=== PATIENT | male | born 1955 | race African-American/Black ===

== ENCOUNTER 2021-02-23 18:02 | Emergency (ER) | payer BC, OTHER ==
--- OUTSIDE RECORDS SUMMARY | 2021-02-23 18:05 | XMS REPORT | Continuity of Care Document ---
:1955 Author Organization [facility] t Address [address] [place] [address] Care Team Providers Name Role Phone Pcp, Patient Does Not Have A Primary Care Physician +[id number] Ramirez LOUIS Attending Clinician Unavailable Liyah PRESSLEY Attending Clinician Lisa BROWN Attending Clinician Unavailable Savi BROWN, T Attending Clinician Unavailable Only, Db Test Attending Clinician Unavailable Padmini SILVA Attending Clinician PADMINI Attending Clinician Unavailable ABDIRIZAK Attending Clinician Unavailable DANYEL Attending Clinician Unavailable Payers Payer Name Policy Type Policy Number Effective Date Expiration Date S ource Problems Condition Condition Condition Status Onset Resolution Last Treating Co mments Source Name Details Category Date Date Treatment Clinician Date Vitamin D Vitamin D Disease Active 2020-04 [facility] deficiency deficiency 0-22 [facility] alth 00:00: 00 Tobacco Tobacco Disease Active 2020-04 [facility] dependency dependency 0-05 [facility] 00:00: 00 Chronic Chronic Disease Active 2020-04 [facility] obstructiv obstructiv 0-05 He alth e e 00:00: pulmonary pulmonary 00 disease disease Type 2 Type 2 Disease Active 2020-04 [facility] diabetes diabetes 0-05 Health mellitus mellitus 00:00: without without 00 complicati complicati on, on, without without long-term long-term current current use of use of insulin insulin Hyperlipid Hyperlipid Disease Active 2020-04 U T emia emia 0-05 Health 00:00: 00 Allergies, Adverse Reactions, Alerts Allergy Allergy Status Severity Reaction(s) Onset Inactive Treating Comm ents Source Name Type Date Date Clinician NO KNOWN Drug Active [facility] ALLERGIE Class ity [facility] Social History Social Habit Start Date Stop Date Quantity Comments Source Exposure to Not sure [facility] SARS-CoV-2 (event) Tobacco use and 2021-01-11 2021-01-11 Smokeless tobacco [facility] exposure 00:00:00 00:00:00 non-user Sex Ass[birth year] At [birth year] [facility] 00:00:00 00:00:00 Smoking Status Start Date Stop Date Source Unknown if ever smoked [facility] Smokes tobacco daily 2021-01-11 00:00:00 [facility] Medications Ordered Filled Start Stop Current Ordering Indication Dosage Frequency Signature Comments Components Source Medication Medication Date Date Medication? Clinician (SIG) Name Name glucose 2020-04- Yes [id number] Check [facility] blood test 04-19- glucose 3 Hea lth strip 00:00: 05:59 times 00 :00 daily Blood 2020-04- Yes [id number] Check [facility] Glucose 04-19- glucose Health Monitoring 00:00: 05:59 three Suppl 00 :00 times (Blood daily. Glucose Monitor System) w/Device kit glucose 2020-04- Yes [id number] Check [facility] blood test 04-19- glucose 3 Hea lth strip 00:00: 05:59 times 00 :00 daily Blood 2020-04- Yes [id number] Check [facility] Glucose 04-19- glucose Health Monitoring 00:00: 05:59 three Suppl 00 :00 times (Blood daily. Glucose Monitor System) w/Device kit glucose 2020-04- Yes [id number] Check [facility] blood test 04-19- glucose 3 Hea lth strip 00:00: 05:59 times 00 :00 daily Blood 2020-04- Yes [id number] Check [facility] Glucose 04-19- glucose Health Monitoring 00:00: 05:59 three Suppl 00 :00 times (Blood daily. Glucose Monitor System) w/Device kit Lancets 2020-04- Yes [id number] Box 3 [facility] Super Thin 04-19 [id number] (three) Health 28G misc 00:00: 05:59 3D times a 00 :00 day. Lancets 2020-04- Yes [id number] 1 Box 3 [facility] Super Thin -03-20 [id number] (three) Health 28G misc 00:00: 05:59 3D times a 00 :00 day. Alcohol 2020-04- Yes [id number] Q.[id number] 1 Box 3 [facility] Swabs 04-19 [id number] (three) Heal th (Alcohol 00:00: 05:59 3D times a Pads) 70 % 00 :00 day. PT pads checks blood glucose three times daily. Lancets 2020-04- Yes [id number] 1 Box 3 [facility] Super Thin -03-20 [id number] (three) Health 28G misc 00:00: 05:59 3D times a 00 :00 day. Alcohol 2020-04- Yes [id number] Q.[id number] 1 Box 3 [facility] Swabs 04-19 [id number] (three) Heal th (Alcohol 00:00: 05:59 3D times a Pads) 70 % 00 :00 day. PT pads checks blood glucose three times daily. empaglifloz 2020-04- Yes [id number] 25mg QD Take 1 [facility] in 0-22 10-23 tablet (25 Health (Jardiance) 00:00: 04:59 mg total) 25 MG 00 :00 by mouth 1 (one) time each day. linaGLIPtin 2020-04- Yes [id number] 5mg QD Take 1 [facility] (Tradjenta) 0-22 10-23 tablet (5 He alth 5 MG tablet 00:00: 04:59 mg total) 00 :00 by mouth 1 (one) time each day. empaglifloz 2020-04- Yes [id number] 25mg QD Take 1 [facility] in 0-22 10-23 tablet (25 Health (Jardiance) 00:00: 04:59 mg total) 25 MG 00 :00 by mouth 1 (one) time each day. linaGLIPtin 2020-04- Yes [id number] 5mg QD Take 1 UT (Tradjenta) 0-22 10-23 tablet (5 He alth 5 MG tablet 00:00: 04:59 mg total) 00 :00 by mouth 1 (one) time each day. empaglifloz 2020-04- Yes [id number] 25mg QD Take 1 UT in - tablet (25 Health (Jardiance) 00:00: 04:59 mg total) 25 MG 00 :00 by mouth 1 (one) time each day. linaGLIPtin 2020-04- Yes [id number] 5mg QD Take 1 UT (Tradjenta) 01-29 tablet (5 He alth 5 MG tablet 00:00: 04:59 mg total) 00 :00 by mouth 1 (one) time each day. empaglifloz 2020-04- Yes [id number] 25mg QD Take 1 UT in 01-29 tablet (25 Health (Jardiance) 00:00: 04:59 mg total) 25 MG 00 :00 by mouth 1 (one) time each day. linaGLIPtin 2020-04- Yes [id number] 5mg QD Take 1 UT (Tradjenta) 01-29 tablet (5 He alth 5 MG tablet 00:00: 04:59 mg total) 00 :00 by mouth 1 (one) time each day. atorvastati 2020-04- Yes [id number] 40mg QD Take 1 UT n (Lipitor) 07-28 tablet (40 H ealth 40 MG 00:00: 04:59 mg total) tablet 00 :00 by mouth 1 (one) time each day. metFORMIN 2020-04- Yes [id number] 1000mg QD Take 2 UT XR - tablets Health (Glucophage 00:00: 04:59 (1,000 mg -XR) 500 MG 00 :00 total) by 24 hr mouth 1 tablet (one) time each day with breakfast. Do not crush, chew, or split. atorvastati 2020-04- Yes [id number] 40mg QD Take 1 UT n (Lipitor) -21 tablet (40 H ealth 40 MG 00:00: 04:59 mg total) tablet 00 :00 by mouth 1 (one) time each day. metFORMIN 2020-04- Yes [id number] 1000mg QD Take 2 UT XR 0-22 04-21 tablets Health (Glucophage 00:00: 04:59 (1,000 mg -XR) 500 MG 00 :00 total) by 24 hr mouth 1 tablet (one) time each day with breakfast. Do not crush, chew, or split. atorvastati 2020-04- Yes [id number] 40mg QD Take 1 UT n (Lipitor) 0-22 04-21 tablet (40 H ealth 40 MG 00:00: 04:59 mg total) tablet 00 :00 by mouth 1 (one) time each day. metFORMIN 2020-04- Yes [id number] 1000mg QD Take 2 UT XR 0-22 04-21 tablets Health (Glucophage 00:00: 04:59 (1,000 mg -XR) 500 MG 00 :00 total) by 24 hr mouth 1 tablet (one) time each day with breakfast. Do not crush, chew, or split. atorvastati 2020-04- Yes [id number] 40mg QD Take 1 UT n (Lipitor) 0-29 07-21 tablet (40 H ealth 40 MG 00:00: 04:59 mg total) tablet 00 :00 by mouth 1 (one) time each day. metFORMIN 2020-04- Yes [id number] 1000mg QD Take 2 UT XR 0-22 -21 tablets Health (Glucophage 00:00: 04:59 (1,000 mg -XR) 500 MG 00 :00 total) by 24 hr mouth 1 tablet (one) time each day with breakfast. Do not crush, chew, or split. ergocalcife 2020-04- Yes [id number] Take 1 UT rol 04-23 capsule Health (Vitamin 00:00: 05:59 (50,000 D-2) 1.25 00 :00 Units MG (16517 total) by UT) capsule mouth 1 (one) time per week. ergocalcife 2020-04- Yes [id number] Take 1 UT rol -04-23 capsule Health (Vitamin 00:00: 05:59 (50,000 D-2) 1.25 00 :00 Units MG (29390 total) by UT) capsule mouth 1 (one) time per week. ergocalcife 2020-04- Yes [id number] Take 1 UT rol 0-22 15 capsule Health (Vitamin 00:00: 05:59 (50,000 D-2) 1.25 00 :00 Units MG (93090 total) by UT) capsule mouth 1 (one) time per week. ergocalcife 2020-04- Yes [id number] Take 1 UT rol 0-22 15 capsule Health (Vitamin 00:00: 05:59 (50,000 D-2) 1.25 00 :00 Units MG (92594 total) by UT) capsule mouth 1 (one) time per week. buPROPion 2020-04- Yes [id number] 150mg Take 1 UT XL 0-05 12-05 tablet Health (Wellbutrin 00:00: 05:59 (150 mg XL) 150 MG 00 :00 total) by 24 hr mouth 1 tablet (one) time each day in the morning. Do not crush, chew, or split. buPROPion 2020-04- Yes [id number] 150mg Take 1 UT XL 0-05 12-05 tablet Health (Wellbutrin 00:00: 05:59 (150 mg XL) 150 MG 00 :00 total) by 24 hr mouth 1 tablet (one) time each day in the morning. Do not crush, chew, or split. buPROPion 2020-04- Yes [id number] 150mg Take 1 UT XL 0-05 12-05 tablet Health (Wellbutrin 00:00: 05:59 (150 mg XL) 150 MG 00 :00 total) by 24 hr mouth 1 tablet (one) time each day in the morning. Do not crush, chew, or split. buPROPion 2020-04- Yes [id number] 150mg Take 1 UT XL 0-05 12-05 tablet Health (Wellbutrin 00:00: 05:59 (150 mg XL) 150 MG 00 :00 total) by 24 hr mouth 1 tablet (one) time each day in the morning. Do not crush, chew, or split. Immunizations Ordered Immunization Filled Immunization Date Status Commen ts Source Name Name Pneumococcal Conjugate 2021-01-11 Completed [facility] PCV 13 00:00:00 Influenza, High Dose 2021-01-11 Completed [facility] Seasonal 00:00:00 Pneumococcal Conjugate 2021-01-11 Completed [facility] PCV 13 00:00:00 Influenza, High Dose 2021-01-11 Completed [facility]al 00:00:00 Pneumococcal Conjugate 2021-01-11 Completed [facility] PCV 13 00:00:00 Influenza, High Dose 2021-01-11 [facility]pleted [facility] 00:00:00 Pneumococcal Conjugate 2021-01-11 Completed [facility] PCV 13 00:00:00 Influenza, High Dose 2021-01-11 [facility]pleted [facility] 00:00:00 Procedures This patient has no known procedures. Encounters Start End Encounter Admission Attending Care Care Encounter Source Date/Time Date/Time Type Type Clinicians Facility Department ID 2021-02-17 2021-02-17 Orders Roberth Guzmán MARCE [id number] [facility] 00:00:00 00:00:00 Only GuzmánDarwinel BEBETO [id number] [facility] [id number] MULTI [id number] SPECIALTY 3 2021-02-17 2021-02-17 Orders Darwin Guzmánel UTP [id number] [facility] 00:00:00 00:00:00 Only Roberth GuzmánNNA [id number] [facility] [id number] MULTI [id number] SPECIALTY 3 2021-02-17 2021-02-17 Telephone Iron Pelletier [id number] [facility] 00:00:00 00:00:00 BEBETO [id number] [facility] [id number] MULTI [id number] SPECIALTY 3 2021-02-16 2021-02-16 Telephone Yumiko Gonzalez [facility] [id number] [id number] [facility] 00:00:00 00:00:00 Yumiko Gonzalez [id number] [facility] [id number] [place] [id number] 2020-12-10 2020-12-10 Letter ROULA Hou [id number] Univers 00:00:00 00:00:00 (Out) Yesenia SHANNON [id number] it y of [facility] [id number] [place] [id number] [address] 2020-12-08 2020-12-08 Laboratory Only, Ang Db Test [facility] 1.2.8 [id number] [id number] Univers 14:17:03 14:27:03 [facility] [id number] it[facility] [id number] [place]?Blea [id number] Ga rae [address] [facility] 2020-12-08 2020-12-08 Outpatient R PADMINI [facility] [id number] Univers 14:15:00 14:15:00 JANICE trotter o f [facility] 2020-12-07 2020-12-07 Outpatient Scott REVELES [facility] [id number] [facility] 15:50:00 15:50:00 SIXTO trotter [facility] 2020-07-19 2020-07-19 Outpatient DANYEL [facility] [id number] [place] 00:00:00 00:00:00 CECELIA [address] 2020-06-28 2020-06-28 [facility] [id number] [place] 00:00:00 00:00:[address] Results This patient has no known results.
--- NOTE | 2021-02-23 19:56 | RAD REPORT ---
EXAM DESCRIPTION: Shoulder Right 2 View - 02/23/2021 7:47 pm CLINICAL HISTORY: shoulder pain COMPARISON: No comparisonsNo comparisons TECHNIQUE: Internal and external rotation views of the right shoulder were obtained. FINDINGS: There is no fracture or dislocation. Small inferiorly directed spurs are present at the A C joint. Acromial humeral joint space within normal range. No abnormal soft tissue calcifications. No acute or suspicious findings. IMPRESSION: Degenerative spurring at the AC joint. No acute findings seen.
--- NOTE | 2021-02-23 20:02 | RAD REPORT ---
EXAM DESCRIPTION: CT - C Spine Wo Con - 02/23/2021 7:51 pm CLINICAL HISTORY: Right-sided pain COMPARISON: None. TECHNIQUE: Axial 2 mm thick images of the cervical spine were obtained with sagittal and coronal rec onstruction images generated and reviewed. All CT scans are performed using dose optimization technique as appropriate and may include automated exposure control or mA/KV adjustment according to patient size. FINDINGS: Chronic right maxillary sinusitis findings are present. Partially imaged ethmoid air cells show mucosal thickening. The mastoid air cells are clear. Cervical bodies are normal in height. There is straightening and slight reversal of the usual cervica l lordosis with the apex at the C4-5 level. Very slight retrolisthesis of C5 on C6 noted. C4-5 and C5 -6 disc space narrowing present with endplate spurring. Minimal bony foraminal encroachment changes a re present. Right facet joint degenerative change C2-3 causes mild right foraminal stenosis. Uncovert ebral joint hypertrophy causes mild foraminal stenosis at C5-6. Gas density right lateral margin C5-6 disc level is likely from protruding disc material from the right lateral margin. No fracture or acute vertebral body finding. No paraspinal mass or hematoma. Central canal detail is inherently limited on CT imaging. IMPRESSION: Prominent cervical spine degenerative changes are present spanning C4-C6. No fracture or acute cervical vertebral body finding. Gas density right lateral margin of the C5-6 disc space is probably protruding degenerative disc mate rial where there is also significant right lateral endplate spurring and uncovertebral joint hypertro phy. Central canal detail is inherently limited. Concerns for disc herniation, central canal abnormality o r occult bone process can be addressed with follow-up outpatient MR imaging.
[2021-02-23] MEDS ORDERED: HYDROCODONE/APAP 10/325 TAB ONE (20:14)
--- NOTE | 2021-02-23 20:46 | EDPHYS ---
Physician Documentation [facility] Name: Dana De Los Santos Age: 66 yrs Sex: Male : 1955 Arrival Date: 02/23/2021 Time: 18:04 Bed 18 Private MD: ED Physician Sav Gresham HPI: 02/23 19:15 This 66 yrs old Black Male presents to ER via Ambulatory with complaints of Arm Pain, jmm Shoulder Pain. 19:15 The patient or guardian complains of pain. Onset: The symptoms/episode began/occurred jmm this morning. This is a 66-year-old male with history of diabetes mellitus and hypertension the presents emerged part with complaints of right trapezius pain which radiates down his right arm and up his neck. Patient states he awoke to it today. And noticed the mass in the area. Denies weakness, denies chest pain or shortness of breath. Historical: - Allergies: 18:09 No Known Allergies; ld1 - Home Meds: 18:09 metformin 500 mg Oral Tb24 2 tabs once daily [Active]; ld1 - PMHx: 18:09 Diabetes mellitus; Hypertensive disorder; ld1 - PSHx: 18:09 None; ld1 - Immunization history:: Adult Immunizations up to date, Client reports receiving the 2nd dose of the Covid vaccine. - Social history:: Smoking status: Patient reports the use of cigarette tobacco products, denies chronic smoking, but will smoke occasionally, Patient/guardian denies using alcohol. ROS: 19:15 Constitutional: Negative for fever, chills, and weight loss, Cardiovascular: Negative jmm for chest pain, palpitations, and edema, Respiratory: Negative for shortness of breath, cough, wheezing, and pleuritic chest pain. 19:15 Back: Positive for pain with movement. 19:15 All other systems are negative. Exam: 19:15 Constitutional: This is a well developed, well nourished patient who is awake, alert, jmm and in no acute distress. Head/Face: atraumatic. Eyes: EOMI, no conjunctival erythema appreciated ENT: Moist Mucus Membranes 19:15 Chest/axilla: Normal chest wall appearance and motion. Cardiovascular: Regular rate and rhythm. No edema appreciated Respiratory: Normal respirations, no respiratory distress appreciated Abdomen/GI: Non distended, soft 19:15 Skin: General appearance color normal MS/ Extremity: Moves all extremities, no obvious deformities appreciated, no edema noted to the lower extremities Neuro: Awake and alert, normal gait Psych: Behavior is normal, Mood is normal, Patient is cooperative and pleasant 19:15 Neck: ROM/movement: is normal. 19:15 Back: muscle spasm, is appreciated in the right trapezius. Vital Signs: 18:07 BP 141 / 81; Pulse 89; Resp 19; Temp 98.4(TE); Pulse Ox 98% on R/A; Weight 75.75 kg; ld1 Height 6 ft. 3 in. (190.50 cm); Pain 8/10; 18:35 BP 140 / 82; Pulse 85; Resp 18; Temp 98.2(O); Pulse Ox 99% on R/A; sl2 20:15 BP 149 / 69; Pulse 73; Resp 20; Pulse Ox 100% on R/A; cc4 21:00 BP 138 / 82; Pulse 69; Resp 20; Temp 98.5(O); Pulse Ox 100% on R/A; cc4 18:07 Body Mass Index 20.87 (75.75 kg, 190.50 cm) ld1 MDM: 19:15 Patient medically screened. [facility] 20:43 Data reviewed: vital signs, nurses notes. Counseling: I had a detailed discussion with mily the patient and/or guardian regarding: the historical points, exam findings, and any diagnostic results supporting the discharge/admit diagnosis, radiology results, the need for outpatient follow up, to return to the emergency department if symptoms worsen or persist or if there are any questions or concerns that arise at home. 02/23 19:27 Order name: C Spine W/O Contrast; Complete Time: 20:03 [facility] 02/23 19:27 Order name: Shoulder Right (2 View) XRAY; Complete Time: 20:00 [facility] Administered Medications: 20:15 Drug: [place] (HYDROcodone-acetaminophen) 10 mg-325 mg 1 tabs Route: PO; cc4 21:00 Follow up: Response: No adverse reaction; Pain is decreased cc4 Disposition Summary: 02/23/21 20:45 Discharge Ordered Location: Home [facility] Condition: Stable [facility] Diagnosis - Muscle spasm of back jm - Radiculopathy, cervical region [facility] Followup: jmm - With: Private Physician - When: 2 - 3 days - Reason: Recheck today's complaints, Continuance of care, Re-evaluation by your physician Discharge Instructions: - Discharge Summary Sheet jmm - Cervical Radiculopathy jmm - Muscle Cramps and Spasms [facility] Forms: - Medication Reconciliation Form [facility] - Thank You Letter jmm - Antibiotic Education jmm - Prescription Opioid Use jm Prescriptions: - orphenadrine citrate 100 mg Oral Tablet Sustained Release - take 1 tablet by ORAL route 2 times per day As needed; 20 tablet; Refills: 0, jm Product Selection Permitted Addendum: 02/26/2021 07:37 Co-signature as Attending Physician, Sav Gresham MD I agree with the assessment and r n plan of care. Attestation: The patient's history, exam findings, diagnostics, and a summary of any interventions or procedures was reviewed in detail with Brandon FLYNN. Signatures: Dispatcher [employer] EDAL Brandon Ruiz PA PA jm Sav Gresham MD MD rn Dibbern, Lauren RN RN ld1 Mirta Reddy RN RN cc4
--- NOTE | 2021-02-23 20:46 | ER ---
Nurse's Notes [facility] [place] Name: Dana De Los Santos Age: 66 yrs Sex: Male : 1955 Arrival Date: 02/23/2021 Time: 18:04 Bed 18 Private MD: Diagnosis: Muscle spasm of back;Radiculopathy, cervical region Presentation: 02/23 18:07 Chief complaint: Patient states: Right shoulder/arm pain, reports a knot on right side ld1 of neck that radiates pain down right arm - pain since last night. Coronavirus screen: At this time, the client does not indicate any symptoms associated with coronavirus-19. Ebola Screen: No symptoms or risks identified at this time. Initial Sepsis Screen: Does the patient meet any 2 criteria? No. Patient's initial sepsis screen is negative. Does the patient have a suspected source of infection? No. Patient's initial sepsis screen is negative. Risk Assessment: Do you want to hurt yourself or someone else? Patient reports no desire to harm self or others. Onset of symptoms was February 23, 2021. 18:07 Method Of Arrival: Ambulatory ld1 18:07 Acuity: FLORENTIN 4 ld1 Triage Assessment: 18:09 General: Appears in no apparent distress. comfortable, Behavior is calm, cooperative, ld1 appropriate for age. Pain: Complains of pain in anterior aspect of right shoulder Pain radiates to right sternocleidomastoid Pain currently is 8 out of 10 on a pain scale. Quality of pain is described as throbbing, Pain began gradually, Is continuous. EENT: No signs and/or symptoms were reported regarding the EENT system. Neuro: Level of Consciousness is awake, alert, obeys commands, Oriented to person, place, time, situation. Cardiovascular: Capillary refill < 3 seconds Patient's skin is warm and dry. Respiratory: Airway is patent Respiratory effort is even, unlabored, Respiratory pattern is regular, symmetrical. GI: Abdomen is flat, non-distended. : No signs and/or symptoms were reported regarding the genitourinary system. Derm: No signs and/or symptoms reported regarding the dermatologic system. Musculoskeletal: Reports pain in right arm. Historical: - Allergies: 18:09 No Known Allergies; ld1 - Home Meds: 18:09 metformin 500 mg Oral Tb24 2 tabs once daily [Active]; ld1 - PMHx: 18:09 Diabetes mellitus; Hypertensive disorder; ld1 - PSHx: 18:09 None; ld1 - Immunization history:: Adult Immunizations up to date, Client reports receiving the 2nd dose of the Covid vaccine. - Social history:: Smoking status: Patient reports the use of cigarette tobacco products, denies chronic smoking, but will smoke occasionally, Patient/guardian denies using alcohol. Screenin:30 Abuse screen: Denies threats or abuse. Denies injuries from another. Nutritional sl2 screening: No deficits noted. Tuberculosis screening: No symptoms or risk factors identified. Fall Risk None identified. No fall in past 12 months (0 pts). No secondary diagnosis (0 pts). No IV (0 pts). Ambulatory Aid- None/Bed Rest/Nurse Assist (0 pts). Gait- Normal/Bed Rest/Wheelchair (0 pts) Mental Status- Oriented to own ability (0 pts). Total Mendoza Fall Scale indicates No Risk (0-24 pts). Assessment: 18:30 General: Appears uncomfortable, slender, well groomed, well developed, Behavior is sl2 calm, cooperative, appropriate for age, agitated, Reports right side of neck and right shoulder pain - radiates to right arm. Pain: Complains of pain in neck and right sternocleidomastoid and right arm and anterior aspect of right shoulder Pain radiates to right arm. Pain:. Neuro: No deficits noted. Level of Consciousness is awake, alert, obeys commands, Oriented to person, place, time, situation, Appropriate for age Picker/Puller are equal bilaterally Moves all extremities. Full function Gait is steady, Speech is normal, Facial symmetry appears normal. Cardiovascular: No deficits noted. Respiratory: No deficits noted. GI: No signs and/or symptoms were reported involving the gastrointestinal system. : No deficits noted. EENT: No signs and/or symptoms were reported regarding the EENT system. Derm: No deficits noted. Musculoskeletal: Reports pain in neck and right sternocleidomastoid and right arm and anterior aspect of right shoulder. 18:30 Pain: Pain currently is 6 out of 10 on a pain scale. at worst was 9 out of 10 on a pain sl2 scale. level that patient reports is acceptable is 2 out of 10 on a pain scale. Quality of pain is described as aching, sharp, Pain began suddenly, Is continuous, Alleviated by relaxation, Aggravated by increased activity, repositioning, Noted to be resistant to movement. 20:00 Reassessment: Patient appears in no apparent distress at this time. Portable xray cc4 completed right shoulder per bag grader. 20:15 General: Appears uncomfortable, Behavior is calm, cooperative. Pain: Complains of pain cc4 in posterior right shoulder Pain radiates to right arm Pain currently is 8 out of 10 on a pain scale. Quality of pain is described as aching, Pain began suddenly, today. Is continuous, Alleviated by nothing. Aggravated by increased activity, medicated as ordered for pain. Neuro: No deficits noted. Level of Consciousness is awake, alert, obeys commands, Oriented to person, place, time, situation. Cardiovascular: No deficits noted. Respiratory: No deficits noted. Airway is patent Respiratory effort is even, unlabored, Respiratory pattern is regular, symmetrical. GI: No signs and/or symptoms were reported involving the gastrointestinal system. : No signs and/or symptoms were reported regarding the genitourinary system. EENT: No signs and/or symptoms were reported regarding the EENT system. Derm: No deficits noted. Skin is intact. Musculoskeletal: Capillary refill < 3 seconds, Range of motion: limited in right arm/ right shoulder. 21:00 Reassessment: Patient appears in no apparent distress at this time. Reports decreasing cc4 pain right shoulder. Vital Signs: 18:07 BP 141 / 81; Pulse 89; Resp 19; Temp 98.4(TE); Pulse Ox 98% on R/A; Weight 75.75 kg; ld1 Height 6 ft. 3 in. (190.50 cm); Pain 8/10; 18:35 BP 140 / 82; Pulse 85; Resp 18; Temp 98.2(O); Pulse Ox 99% on R/A; sl2 20:15 BP 149 / 69; Pulse 73; Resp 20; Pulse Ox 100% on R/A; cc4 21:00 BP 138 / 82; Pulse 69; Resp 20; Temp 98.5(O); Pulse Ox 100% on R/A; cc4 18:07 Body Mass Index 20.87 (75.75 kg, 190.50 cm) ld1 ED Course: 18:04 Patient arrived in ED. as 18:09 Triage completed. ld1 18:09 Arm band placed on left wrist. ld1 18:15 Brandon Ruiz PA is PHCP. joyce 18:15 Sav Gresham MD is Attending Physician. jarret 18:23 Judit Richardson, RN is Primary Nurse. sl2 18:30 Patient has correct armband on for positive identification. Bed in low position. Call sl2 light in reach. Adult w/ patient. 18:30 No provider procedures requiring assistance completed. Patient did not have IV access sl2 during this emergency room visit. 19:46 Shoulder Right (2 View) XRAY In Process Unspecified. EDMS 19:51 C Spine W/O Contrast In Process Unspecified. EDMS Administered Medications: 20:15 Drug: Alder (HYDROcodone-acetaminophen) 10 mg-325 mg 1 tabs Route: PO; cc4 21:00 Follow up: Response: No adverse reaction; Pain is decreased cc4 Outcome: 20:45 Discharge ordered by MD. [facility] 21:00 Discharged to home ambulatory, with . cc4 21:00 Condition: improved 21:00 Discharge instructions given to patient, Instructed on discharge instructions, follow up and referral plans. medication usage, Demonstrated understanding of instructions, follow-up care, medications, Prescriptions given X 1. 21:24 Patient left the ED. cc4 Signatures: Dispatcher [employer] [facility] Brandon Ruiz PA PA jmm Martinez, Amelia as Dibbern, Lauren, RN RN ld1 Mirta Reddy RN RN cc4 Judit Richardson RN RN sl2
[2021-02-23 22:45] VITALS: BP 141/81; TEMP 98.4; O2SAT 98
== END 2021-02-23 21:24 | disposition home or self-care (01) ==
LOC: ER 18:02
DX: M62.830 Muscle spasm of back (principal); M54.12 Radiculopathy, cervical region; I10 Essential (primary) hypertension; E11.9 Type 2 diabetes mellitus without complications
CPT/HCPCS: 72125; 99283